=== PATIENT | female | born 1935 | race African-American/Black ===

== ENCOUNTER 2019-10-09 12:55 | Inpatient (IN) | payer MEDICARE, MEDICAID ==
[~2019-10-09] VITALS: Ht 170.2 cm; Wt 54.4 kg
[~2019-10-09 12:55] MED LIST: AMLO10TA4 PO; ASPI-1158 PO; COLE3.75 PO; FERR1TAB51 PO; FISH1CAP38 PO; GABA300C PO; LOSA25TA26 PO; LOSA25TA3 PO; METF-414 PO; TRAM50TA94 PO; TRIA15OI8 TP
[2019-10-09] MEDS ORDERED: ONDANSETRON HCL 4MG/2ML INJ IV PRN (13:15)
[2019-10-09] MEDS ORDERED: MORPHINE SULFATE 2 MG/ML CPJ (NOT FOR IM USE) IV PRN (13:15)
[2019-10-09] MEDS ORDERED: ACETAMINOPHEN 325MG TABLET PO PRN (13:15)
[2019-10-09] MEDS ORDERED: CLONIDINE 0.1MG TABLET PO PRN (13:15)
[2019-10-09] MEDS ORDERED: LIDOCAINE HCL 1% 20ML VIAL (Pyxis) INJ ONE (14:19)
[2019-10-09] MEDS ORDERED: SODIUM BICARBONATE 4% (2.4MEQ) 5ML VIAL IV ONE (14:19)
[2019-10-09 14:38] LABS: BASOPHILS % 0.6 % (0.0-2.0); EOSINOPHILS % 3.2 % (0.0-5.0); HEMATOCRIT. 21.2 % (36.0-48.0); LYMPHOCYTES % 18.5 % (20.0-50.0); MEAN CORPUSCULAR HEMOGLOBIN 21.3 pg (28.0-32.0); MONOCYTES % 10.1 % (2.0-8.0); NEUTROPHILS % 67.6 % (40.0-76.0); PLATELET 178 x1000/uL (130-400); RED BLOOD CELL COUNT 2.87 mill/uL (4.2-5.4); RED CELL DISTRIBUTION WIDTH 25.1 % (11.6-14.6)
[2019-10-09 14:41] VITALS: BP 126/63
[2019-10-09 14:50] LABS: HEMOGLOBIN. 6.1 g/dL (12.0-16.0)
[2019-10-09 16:00] VITALS: BP 126/63
[2019-10-09] MEDS: NICOTINE 14MG PATCH TD SCH (16:00)
[2019-10-09 20:00] VITALS: BP 102/52
[2019-10-09] MEDS: GABAPENTIN 300MG CAPSULE PO SCH (20:32)
[2019-10-09 21:40] LABS: PLATELET ESTIMATE NORMAL
[2019-10-09] MEDS ORDERED: DEXTROSE 50% WATER 50ML SYRINGE IV PRN (22:00)
[2019-10-09 23:03] VITALS: BP 97/50
[2019-10-09 23:15] VITALS: BP 98/48
[2019-10-10] VITALS: BP 108/59
[2019-10-10 00:15] VITALS: BP 104/68
[2019-10-10 01:20] VITALS: BP 108/59
[2019-10-10 02:57] LABS: CHLORIDE 110 mEq/L (98-107)
[2019-10-10 03:04] LABS: LDL CHOLESTEROL 25 mg/dL (5-100)
[2019-10-10 03:05] LABS: HDL CHOLESTEROL 28 mg/dL (40-59)
[2019-10-10 03:10] LABS: BASOPHILS % 0.5 % (0.0-2.0); EOSINOPHILS % 2.2 % (0.0-5.0); HEMATOCRIT. 24.5 % (36.0-48.0); HEMOGLOBIN. 7.2 g/dL (12.0-16.0); LYMPHOCYTES % 16.4 % (20.0-50.0); MEAN CORPUSCULAR HEMOGLOBIN 22.4 pg (28.0-32.0); MEAN CORPUSCULAR VOLUME 76.7 fL (81.0-99.0); MEAN PLATELET VOLUME 8.1 fl (7.4-10.4); MONOCYTES % 10.4 % (2.0-8.0); NEUTROPHILS % 70.5 % (40.0-76.0); PLATELET 151 x1000/uL (130-400); RED BLOOD CELL COUNT 3.19 mill/uL (4.2-5.4); RED CELL DISTRIBUTION WIDTH 24.8 % (11.6-14.6)
[2019-10-10 04:00] VITALS: BP 107/50
[2019-10-10] MEDS: BLOOD SUGAR DIAGNOSTIC STRIP TEST SCH ×4 (07:28→21:33)
[2019-10-10] MEDS: INSULIN LISPRO 100 UNITS/ML SUBCUT SCH ×4 (07:28→21:00)
[2019-10-10] MEDS: LOSARTAN POTASSIUM 25 MG TABLET PO SCH (08:11)
[2019-10-10] MEDS ORDERED: AMLODIPINE 10MG TABLET PO SCH (09:00)
[2019-10-10] MEDS: FERROUS SULFATE 325MG TABLET PO SCH ×3 (09:19→18:02)
[2019-10-10] MEDS: NICOTINE 14MG PATCH TD SCH (09:19)
[2019-10-10] MEDS ORDERED: SODIUM BICARBONATE 4% (2.4MEQ) 5ML VIAL IV ONE (09:47)
[2019-10-10] MEDS ORDERED: LIDOCAINE HCL 1% 20ML VIAL (Pyxis) INJ ONE (09:48)
[2019-10-10 12:04] LABS: EOSINOPHILS % 2.6 % (0.0-5.0); HEMATOCRIT. 25.5 % (36.0-48.0); HEMOGLOBIN. 7.6 g/dL (12.0-16.0); LYMPHOCYTES % 21.6 % (20.0-50.0); MEAN CORPUSCULAR HEMOGLOBIN 22.8 pg (28.0-32.0); MEAN CORPUSCULAR VOLUME 76.7 fL (81.0-99.0); MEAN PLATELET VOLUME 9.1 fl (7.4-10.4); MONOCYTES % 8.2 % (2.0-8.0); NEUTROPHILS % 66.6 % (40.0-76.0); PLATELET 157 x1000/uL (130-400); RED BLOOD CELL COUNT 3.32 mill/uL (4.2-5.4); RED CELL DISTRIBUTION WIDTH 24.7 % (11.6-14.6)
[2019-10-10] MEDS ORDERED: FUROSEMIDE 40MG/4ML VIAL IVP NR (13:30)
[2019-10-10] MEDS: AMLODIPINE 2.5MG TABLET PO SCH (17:00)
[2019-10-10] MEDS: LEVOFLOXACIN 250MG PREMIX 50 ML IV SCH (18:37)
[2019-10-10 20:00] VITALS: BP 92/49
[2019-10-10 20:45] VITALS: BP 116/69
[2019-10-10] MEDS: GABAPENTIN 300MG CAPSULE PO SCH ×2 (21:00→21:34)
[2019-10-11] VITALS: BP 108/63
[2019-10-11 00:20] LABS: HEMATOCRIT 26.7 % (36.0-48.0)
[2019-10-11 04:00] VITALS: BP 100/50
[2019-10-11] MEDS: INSULIN LISPRO 100 UNITS/ML SUBCUT SCH ×4 (06:36→21:00)
[2019-10-11] MEDS: BLOOD SUGAR DIAGNOSTIC STRIP TEST SCH ×4 (06:36→21:34)
[2019-10-11 06:38] LABS: BASOPHILS % 0.6 % (0.0-2.0); EOSINOPHILS % 2.1 % (0.0-5.0); HEMATOCRIT. 27.9 % (36.0-48.0); HEMOGLOBIN. 8.4 g/dL (12.0-16.0); LYMPHOCYTES % 16.2 % (20.0-50.0); MEAN CORPUSCULAR HEMOGLOBIN 23.2 pg (28.0-32.0); MEAN CORPUSCULAR VOLUME 77.2 fL (81.0-99.0); MEAN PLATELET VOLUME 8.4 fl (7.4-10.4); MONOCYTES % 8.2 % (2.0-8.0); NEUTROPHILS % 72.9 % (40.0-76.0); PLATELET 163 x1000/uL (130-400); RED BLOOD CELL COUNT 3.61 mill/uL (4.2-5.4); RED CELL DISTRIBUTION WIDTH 24.2 % (11.6-14.6)
[2019-10-11 08:00] VITALS: BP 110/53
[2019-10-11] MEDS: LOSARTAN POTASSIUM 25 MG TABLET PO SCH (08:32)
[2019-10-11] MEDS: FERROUS SULFATE 325MG TABLET PO SCH ×2 (08:33→12:35)
[2019-10-11] MEDS: AMLODIPINE 2.5MG TABLET PO SCH (08:33)
[2019-10-11] MEDS: NICOTINE 14MG PATCH TD SCH (08:33)
[2019-10-11 12:00] VITALS: BP 123/69
[2019-10-11] MEDS ORDERED: SORBITOL 70% SOLN 30ML PO NR ×2 (12:45→18:00)
[2019-10-11] MEDS: LEVOFLOXACIN 250MG PREMIX 50 ML IV SCH (14:22)
[2019-10-11 16:00] VITALS: BP 102/55
[2019-10-11] MEDS: IRON SUCROSE COMPLEX 100 MG/5 ML ML IV SCH (17:14)
[2019-10-11] MEDS ORDERED: METOCLOPRAMIDE HCL 10MG/2ML VIAL IV NR (18:00)
[2019-10-11 20:00] VITALS: BP 122/65
[2019-10-11] MEDS: GABAPENTIN 300MG CAPSULE PO SCH (21:32)
[2019-10-11] MEDS: SORBITOL 70% SOLN 30ML PO SCH (21:53)
[2019-10-12] VITALS: BP 104/59
[2019-10-12] MEDS: SORBITOL 70% SOLN 30ML PO SCH ×3 (00:24→08:28)
[2019-10-12] MEDS: METOCLOPRAMIDE HCL 10MG/2ML VIAL IV SCH ×5 (00:24→23:40)
[2019-10-12 04:00] VITALS: BP 118/58
[2019-10-12] MEDS: BLOOD SUGAR DIAGNOSTIC STRIP TEST SCH ×4 (07:20→20:57)
[2019-10-12 07:23] LABS: BASOPHILS % 0.7 % (0.0-2.0); EOSINOPHILS % 1.1 % (0.0-5.0); HEMATOCRIT. 31.3 % (36.0-48.0); HEMOGLOBIN. 8.7 g/dL (12.0-16.0); LYMPHOCYTES % 15.1 % (20.0-50.0); MEAN CORPUSCULAR HEMOGLOBIN 23.1 pg (28.0-32.0); MEAN CORPUSCULAR VOLUME 83.1 fL (81.0-99.0); MEAN PLATELET VOLUME 8.2 fl (7.4-10.4); MONOCYTES % 7.2 % (2.0-8.0); NEUTROPHILS % 75.9 % (40.0-76.0); PLATELET 166 x1000/uL (130-400); RED BLOOD CELL COUNT 3.76 mill/uL (4.2-5.4)
[2019-10-12] MEDS: INSULIN LISPRO 100 UNITS/ML SUBCUT SCH ×4 (07:50→21:00)
[2019-10-12 08:00] VITALS: BP 114/52
[2019-10-12] MEDS: LOSARTAN POTASSIUM 25 MG TABLET PO SCH (08:28)
[2019-10-12] MEDS: NICOTINE 14MG PATCH TD SCH (08:28)
[2019-10-12] MEDS ORDERED: MIDAZOLAM HCL 5 MG/5 ML VIAL ONE (12:01)
[2019-10-12] MEDS ORDERED: FENTANYL CITRATE/PF 50MCG/ML 2ML VIAL ONE (12:01)
[2019-10-12] MEDS ORDERED: DEXT 5% WATER 500 ML IV ONE (12:30)
[2019-10-12] MEDS ORDERED: MIDAZOLAM HCL 5 MG/5 ML VIAL IV PRN (12:50)
[2019-10-12] MEDS: LEVOFLOXACIN 250MG PREMIX 50 ML IV SCH (14:51)
[2019-10-12] MEDS: PANTOPRAZOLE SODIUM 40 MG/VIAL IV SCH (14:51)
[2019-10-12 16:00] VITALS: BP 133/64
[2019-10-12 16:50] LABS: FOLIC ACID (FOLATE) SERUM 11.4 ng/mL (>5.38)
[2019-10-12] MEDS: IRON SUCROSE COMPLEX 100 MG/5 ML ML IV SCH (17:02)
[2019-10-12] MEDS: SUCRALFATE 1 G/10 ML UDC PO SCH ×2 (17:02→20:55)
[2019-10-12 19:03] LABS: INR 1.3; PROTHROMBIN TIME 13.3 sec (9.6-11.0)
[2019-10-12 20:00] VITALS: BP 116/51
[2019-10-12] MEDS: GABAPENTIN 300MG CAPSULE PO SCH (20:57)
[2019-10-13] VITALS: BP 104/59
[2019-10-13 04:00] VITALS: BP 97/52
[2019-10-13] MEDS: METOCLOPRAMIDE HCL 10MG/2ML VIAL IV SCH ×3 (05:36→18:00)
[2019-10-13] MEDS: BLOOD SUGAR DIAGNOSTIC STRIP TEST SCH ×4 (06:30→21:51)
[2019-10-13] MEDS: SUCRALFATE 1 G/10 ML UDC PO SCH ×4 (06:30→21:50)
[2019-10-13 07:05] LABS: BASOPHILS % 0.2 % (0.0-2.0); EOSINOPHILS % 1.7 % (0.0-5.0); HEMATOCRIT. 27.6 % (36.0-48.0); HEMOGLOBIN. 8.3 g/dL (12.0-16.0); LYMPHOCYTES % 12.7 % (20.0-50.0); MEAN CORPUSCULAR HEMOGLOBIN 24.2 pg (28.0-32.0); MEAN PLATELET VOLUME 8.1 fl (7.4-10.4); MONOCYTES % 11.1 % (2.0-8.0); NEUTROPHILS % 74.3 % (40.0-76.0); PLATELET 155 x1000/uL (130-400); RED BLOOD CELL COUNT 3.45 mill/uL (4.2-5.4)
[2019-10-13] MEDS: INSULIN LISPRO 100 UNITS/ML SUBCUT SCH ×4 (07:50→21:00)
[2019-10-13 08:00] VITALS: BP 116/50
[2019-10-13] MEDS: NICOTINE 14MG PATCH TD SCH (09:00)
[2019-10-13] MEDS: PANTOPRAZOLE SODIUM 40 MG/VIAL IV SCH (10:38)
[2019-10-13] MEDS: LOSARTAN POTASSIUM 25 MG TABLET PO SCH (10:39)
[2019-10-13] MEDS: DEXTROSE 5% WATER 1,000 ML IV SCH (11:03)
[2019-10-13 12:00] VITALS: BP 115/49
[2019-10-13] MEDS: LEVOFLOXACIN 250MG PREMIX 50 ML IV SCH (15:00)
[2019-10-13] MEDS: IRON SUCROSE COMPLEX 100 MG/5 ML ML IV SCH (16:57)
[2019-10-13 20:00] VITALS: BP 104/51
[2019-10-13] MEDS: GABAPENTIN 300MG CAPSULE PO SCH (21:51)
[2019-10-14] VITALS: BP 101/50
[2019-10-14] MEDS: METOCLOPRAMIDE HCL 10MG/2ML VIAL IV SCH ×4 (00:59→23:08)
[2019-10-14] MEDS: DEXTROSE 5% WATER 1,000 ML IV SCH (02:33)
[2019-10-14 04:00] VITALS: BP 87/48
[2019-10-14] MEDS: SUCRALFATE 1 G/10 ML UDC PO SCH ×3 (06:52→23:07)
[2019-10-14 06:56] LABS: BASOPHILS % 0.2 % (0.0-2.0); HEMATOCRIT. 26.7 % (36.0-48.0); HEMOGLOBIN. 7.9 g/dL (12.0-16.0); LYMPHOCYTES % 8.1 % (20.0-50.0); MEAN CORPUSCULAR HEMOGLOBIN 23.7 pg (28.0-32.0); MONOCYTES % 7.8 % (2.0-8.0); NEUTROPHILS % 81.9 % (40.0-76.0); PLATELET 145 x1000/uL (130-400); RED BLOOD CELL COUNT 3.34 mill/uL (4.2-5.4); RED CELL DISTRIBUTION WIDTH 24.5 % (11.6-14.6)
[2019-10-14] MEDS: BLOOD SUGAR DIAGNOSTIC STRIP TEST SCH ×3 (07:04→21:00)
[2019-10-14] MEDS: INSULIN LISPRO 100 UNITS/ML SUBCUT SCH ×3 (07:50→21:00)
[2019-10-14 08:00] VITALS: BP 105/45
[2019-10-14] MEDS: PANTOPRAZOLE SODIUM 40 MG/VIAL IV SCH (09:55)
[2019-10-14] MEDS: LOSARTAN POTASSIUM 25 MG TABLET PO SCH (09:56)
[2019-10-14] MEDS: NICOTINE 14MG PATCH TD SCH (09:56)
[2019-10-14 12:00] VITALS: BP 97/43
[2019-10-14 16:00] VITALS: BP 99/48
[2019-10-14 20:00] VITALS: BP 110/58
[2019-10-14] MEDS: GABAPENTIN 300MG CAPSULE PO SCH (21:29)
[2019-10-14] MEDS: LEVOFLOXACIN 250MG PREMIX 50 ML IV SCH (23:12)
[2019-10-15] VITALS (8 sets, daily range): BP systolic 83–104; BP diastolic 48–74
[2019-10-15] MEDS: DEXTROSE 5% WATER 1,000 ML IV SCH (01:23)
[2019-10-15] MEDS: METOCLOPRAMIDE HCL 10MG/2ML VIAL IV SCH (05:46)
[2019-10-15] MEDS: SUCRALFATE 1 G/10 ML UDC PO SCH (06:19)
[2019-10-15] MEDS: BLOOD SUGAR DIAGNOSTIC STRIP TEST SCH (06:23)
[2019-10-15] MEDS: INSULIN LISPRO 100 UNITS/ML SUBCUT SCH (06:24)
[2019-10-15 07:01] LABS: BASOPHILS % 0.4 % (0.0-2.0); EOSINOPHILS % 2.6 % (0.0-5.0); HEMATOCRIT. 29.1 % (36.0-48.0); HEMOGLOBIN. 8.7 g/dL (12.0-16.0); LYMPHOCYTES % 14.2 % (20.0-50.0); MEAN CORPUSCULAR HEMOGLOBIN 24.2 pg (28.0-32.0); MEAN PLATELET VOLUME 8.9 fl (7.4-10.4); MONOCYTES % 5.8 % (2.0-8.0); PLATELET 136 x1000/uL (130-400); RED BLOOD CELL COUNT 3.59 mill/uL (4.2-5.4); RED CELL DISTRIBUTION WIDTH 23.8 % (11.6-14.6)
[2019-10-15] MEDS: LOSARTAN POTASSIUM 25 MG TABLET PO SCH (09:00)
[2019-10-15] MEDS: PANTOPRAZOLE SODIUM 40 MG/VIAL IV SCH (09:22)
[2019-10-15] MEDS: NICOTINE 14MG PATCH TD SCH (09:23)
[2019-10-15 13:30] LABS: CLARITY URINE CLOUDY (CLEAR); COLOR URINE DARK YELLOW (YELLOW); KETONES URINE NEGATIVE (NEGATIVE); LEUKOCYTE ESTERASE URINE 1+ (NEGATIVE); NITRITE URINE NEGATIVE (NEGATIVE); OCCULT BLOOD URINE TRACE (NEGATIVE); PROTEIN URINE TRACE (NEGATIVE); SPECIFIC GRAVITY URINE 1.018 (1.005-1.030)
== END 2019-10-15 12:10 | disposition home or self-care (01) | DRG 378 ==
LOC: 6EST 12:55
PROVIDERS: ADMIT Internal Medicine Nephrology; ATTEND Internal Medicine Nephrology
PROC: 30233N1 Transfusion of Nonautologous Red Blood Cells into Peripheral Vein, Percutaneous Approach (ICD-10-PCS; 2019-10-09)
PROC: 02HV33Z Insertion of Infusion Device into Superior Vena Cava, Percutaneous Approach (ICD-10-PCS; 2019-10-10)
PROC: B518ZZA Fluoroscopy of Superior Vena Cava, Guidance (ICD-10-PCS; 2019-10-10)
PROC: B548ZZA Ultrasonography of Superior Vena Cava, Guidance (ICD-10-PCS; 2019-10-10)
PROC: 0DJD8ZZ Inspection of Lower Intestinal Tract, Via Natural or Artificial Opening Endoscopic (ICD-10-PCS; principal; 2019-10-12)
PROC: 0DB68ZX Excision of Stomach, Via Natural or Artificial Opening Endoscopic, Diagnostic (ICD-10-PCS; 2019-10-12)
DX: K29.71 Gastritis, unspecified, with bleeding (principal); I48.20 Chronic atrial fibrillation, unspecified; E87.0 Hyperosmolality and hypernatremia; E87.2 Acidosis; I13.0 Hypertensive heart and chronic kidney disease with heart failure and stage 1 through stage 4 chronic kidney disease, or unspecified chronic kidney disease; I42.9 Cardiomyopathy, unspecified; E44.0 Moderate protein-calorie malnutrition; I50.22 Chronic systolic (congestive) heart failure; D50.9 Iron deficiency anemia, unspecified; E11.42 Type 2 diabetes mellitus with diabetic polyneuropathy; I08.1 Rheumatic disorders of both mitral and tricuspid valves; E78.5 Hyperlipidemia, unspecified; I27.20 Pulmonary hypertension, unspecified; K57.30 Diverticulosis of large intestine without perforation or abscess without bleeding; I95.9 Hypotension, unspecified; R00.1 Bradycardia, unspecified; F03.90 Unspecified dementia, unspecified severity, without behavioral disturbance, psychotic disturbance, mood disturbance, and anxiety; N18.3 Chronic kidney disease, stage 3 (moderate); L89.150 Pressure ulcer of sacral region, unstageable; E11.22 Type 2 diabetes mellitus with diabetic chronic kidney disease; K29.80 Duodenitis without bleeding; K82.8 Other specified diseases of gallbladder; K44.9 Diaphragmatic hernia without obstruction or gangrene; Z87.891 Personal history of nicotine dependence; Z79.83 Long term (current) use of bisphosphonates; Z79.82 Long term (current) use of aspirin; Z79.01 Long term (current) use of anticoagulants; Z79.84 Long term (current) use of oral hypoglycemic drugs; Z79.899 Other long term (current) drug therapy; Z88.0 Allergy status to penicillin; Z74.01 Bed confinement status
CPT/HCPCS: 36415; 36573; 71045; 76700; 76937; 80048; 80053; 80061; 80076; 81003; 82270; 82607; 82746; 82962; 83036; 83540; 83550; 83605; 84484; 85014; 85018; 85025; 86850; 86900; 86920; 88305; 93005; 93970; C1725; C9113; J1940; J1956; J2250; J2270; J2765; J3010; J3490; J7070; P9016

== ENCOUNTER 2021-04-24 15:06 | Emergency (ER) | payer MEDICARE, MEDICAID ==
[~2021-04-24] VITALS: Ht 172.7 cm; Wt 64.0 kg
[~2021-04-24 15:06] MED LIST changes: -AMLO10TA4 PO; -ASPI-1158 PO; +CITR473S PO; -COLE3.75 PO; -FERR1TAB51 PO; +FERR325T23 PO; -FISH1CAP38 PO; -GABA300C PO; +LEVO250T58 MT; -LOSA25TA26 PO; -LOSA25TA3 PO; -METF-414 PO; +METR-167 MT; +MIDO2.5T PO; -TRAM50TA94 PO; -TRIA15OI8 TP
[2021-04-24 15:07] VITALS: BP 96/58
[2021-04-24] MEDS ORDERED: EPINEPHRINE 0.1MG/ML (1:10,000) 10ML SYR ONE (15:09)
[2021-04-24] MEDS ORDERED: CALCIUM CHLORIDE 1GM/10ML SYR IV ONE (15:09)
[2021-04-24] MEDS ORDERED: DEXTROSE 50% WATER 50ML SYRINGE IV ONE ×2 (15:09→15:45)
[2021-04-24] MEDS ORDERED: SODIUM BICARBONATE 8.4% 1 MEQ/ML 50ML SYR IV ONE (15:09)
== END 2021-04-24 16:09 ==
LOC: ER 15:06 → CANBEDREQ 19:07
DX: I46.9 Cardiac arrest, cause unspecified (principal); I48.91 Unspecified atrial fibrillation; J96.90 Respiratory failure, unspecified, unspecified whether with hypoxia or hypercapnia; F03.90 Unspecified dementia, unspecified severity, without behavioral disturbance, psychotic disturbance, mood disturbance, and anxiety; E11.9 Type 2 diabetes mellitus without complications; I10 Essential (primary) hypertension; Z88.0 Allergy status to penicillin
CPT/HCPCS: 70450; 82962; 92950; 93005; 99291; J3490; Q9967